=== PATIENT | female | born 1970 | race Caucasian/White ===

== ENCOUNTER 2017-01-18 23:30 | Outpatient (CLI) ==
[2017-01-19 03:16] VITALS: BMI 22.1
== END 2017-01-18 23:31 | disposition critical access hospital (66) ==
LOC: AMBL 23:30
PROVIDERS: ATTEND Internal Medicine Geriatric Medicine
DX: S09.90XA Unspecified injury of head, initial encounter (principal); F10.129 Alcohol abuse with intoxication, unspecified; W22.8XXA Striking against or struck by other objects, initial encounter

== ENCOUNTER 2017-01-18 23:40 | Inpatient (IN) ==
[2017-01-18] MEDS ORDERED: SODIUM CHLORIDE 1,000 ML IV STA (23:47)
[2017-01-18] MEDS ORDERED: ZOFRAN 4 MG/2 ML IVP STA (23:52)
[2017-01-19 00:07] LABS: BASOPHILS # (AUTO) 0.1 K/uL (0-0.2); EOSINOPHILS # (AUTO) 0.2 K/ul (0.0-0.7); EOSINOPHILS % (AUTO) 2.3 % (0.0-7.0); HEMATOCRIT 40.3 % (37.0-47.0); HEMOGLOBIN 13.6 g/dl (12.0-16.0); IMMATURE GRANULOCYTE % (AUTO) 0.3 % (0.0-5.0); LYMPHOCYTES % (AUTO) 28.2 (10.0-50.0); MEAN CORPUSCULAR HEMOGLOBIN 35.9 pg (27.0-31.0); MEAN CORPUSCULAR HGB CONC 33.7 (31.8-35.4); MEAN CORPUSCULAR VOLUME 106.3 fl (81.0-99.0); MONOCYTES # (AUTO) 0.4 K/uL (0.4-2.0); MONOCYTES % (AUTO) 5.3 (0-10); NEUTROPHILS # (AUTO) 4.4 K/ul (2.0-6.9); NEUTROPHILS % (AUTO) 62.9; PLATELET COUNT 292 10^3/uL (140-440); RED BLOOD COUNT 3.79 10^6/ul (4.20-5.40); WHITE BLOOD COUNT 7.01 K/ul (4.6-10.2)
[2017-01-19] MEDS ORDERED: URO-JET MUCOUSMEMB STA (00:16)
[2017-01-19 00:28] LABS: ACETAMINOPHEN 28 ug/ml (10-30); ALANINE AMINOTRANSFERASE 28 U/L (12-78); ALBUMIN 4.2 g/dL (3.4-5.0); ALBUMIN/GLOBULIN RATIO 1.24; ALKALINE PHOSPHATASE 86 U/L (42-98); ANION GAP 15.7; ASPARTATE AMINO TRANSFERASE 28 U/L (15-37); BILIRUBIN,TOTAL 0.19 mg/dL (0.00-1.20); BLOOD UREA NITROGEN 10 mg/dL (7-18); CALCIUM 9.2 mg/dL (8.2-10.2); CARBON DIOXIDE 16 mmol/L (21-32); CHLORIDE 116 mmol/L (98-107); CREATININE 0.84 mg/dL (0.60-1.30); GLUCOSE 139 mg/dL (70-110); POTASSIUM 3.7 mmol/L (3.5-5.10); SALICYLATE < 5.0 mg/dL (2.8-20.0); SODIUM 144 mmol/L (136-145); TOTAL PROTEIN 7.6 g/dL (6.4-8.2)
[2017-01-19 00:38] LABS: URINE PREGNANCY INTERNAL QC INTERNAL QC VALID
[2017-01-19] MEDS ORDERED: TORADOL IVP STA (00:39)
[2017-01-19 00:41] LABS: ADD URINE MICROSCOPIC YES; BILIRUBIN,URINE Negative (NEGATIVE); KETONES,URINE Negative (NEGATIVE); LEUKOCYTE ESTERASE ,URINE Negative (NEGATIVE); NITRITE,URINE Negative (NEGATIVE); PH,URINE 5.5 (5-9); PROTEIN,URINE 2+ (NEGATIVE); URINE, BLOOD Trace-intact (NEGATIVE)
[2017-01-19 00:45] LABS: COCAIN SCREEN,URINE NEGATIVE (NEGATIVE)
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
[2017-01-19] MEDS ORDERED: GEODON IM STA ×2 (00:55→01:37)
[2017-01-19] MEDS ORDERED: THIAMINE IVP STA (00:56)
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
[2017-01-19] MEDS ORDERED: ATIVAN IVP STA (01:13)
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
[2017-01-19] MEDS ORDERED: ZOFRAN 4 MG/2 ML IVP PRN (02:09)
[2017-01-19] MEDS ORDERED: DUONEB NEB PRN (02:09)
[2017-01-19] MEDS ORDERED: TYLENOL PO PRN (02:17)
[2017-01-19] MEDS ORDERED: D5%-NS-KCL 20 MEQ/L IV SOL 1,000 ML IV SCH (02:30)
[2017-01-19] MEDS ORDERED: [UNRECOGNIZED DRUG - OTHER] IV SCH (02:30)
[2017-01-19] MEDS ORDERED: THIAMINE IV SCH (02:30)
[2017-01-19 03:16] VITALS: BMI 22.1
[2017-01-19 05:11] VITALS: BP 97/63
[2017-01-19] MEDS: ATIVAN IVP PRN ×2 (06:34→10:15)
[2017-01-19 07:24] LABS: BASOPHILS # (AUTO) 0.1 K/uL (0-0.2); BASOPHILS % (AUTO) 1.7 % (0.0-3.0); EOSINOPHILS # (AUTO) 0.1 K/ul (0.0-0.7); EOSINOPHILS % (AUTO) 2.3 % (0.0-7.0); HEMATOCRIT 35.3 % (37.0-47.0); HEMOGLOBIN 11.6 g/dl (12.0-16.0); IMMATURE GRANULOCYTE % (AUTO) 0.3 % (0.0-5.0); LYMPHOCYTES # (AUTO) 1.2 K/uL (0.60-3.4); LYMPHOCYTES % (AUTO) 39.6 (10.0-50.0); MEAN CORPUSCULAR HEMOGLOBIN 36.3 pg (27.0-31.0); MEAN CORPUSCULAR HGB CONC 32.9 (31.8-35.4); MEAN CORPUSCULAR VOLUME 110.3 fl (81.0-99.0); MONOCYTES # (AUTO) 0.3 K/uL (0.4-2.0); MONOCYTES % (AUTO) 10.6 (0-10); NEUTROPHILS # (AUTO) 1.4 K/ul (2.0-6.9); NEUTROPHILS % (AUTO) 45.5; PLATELET COUNT 166 10^3/uL (140-440); WHITE BLOOD COUNT 3.03 K/ul (4.6-10.2)
[2017-01-19 07:40] LABS: ANISOCYTOSIS 1+ (NOT PRESENT)
[2017-01-19 07:45] LABS: ALBUMIN 3.5 g/dL (3.4-5.0); ALBUMIN/GLOBULIN RATIO 1.17; ANION GAP 16.2; BILIRUBIN,TOTAL 0.21 mg/dL (0.00-1.20); BUN/CREATININE RATIO 8.41; CALCIUM 8.2 mg/dL (8.2-10.2); CREATININE 1.07 mg/dL (0.60-1.30); POTASSIUM 4.2 mmol/L (3.5-5.10); TOTAL PROTEIN 6.5 g/dL (6.4-8.2)
[2017-01-19] MEDS ORDERED: LOVENOX SUBCUT SCH (09:00)
[2017-01-19 10:01] VITALS: TEMP 99
--- NOTE | 2017-01-19 10:36 | DI ---
Exam: Four x-rays of the left knee. Comparison: None available. Reason for exam: Left knee pain. FINDINGS: No acute fracture or dislocation. The joint spaces are well maintained. No large joint effusion or unexplained calcific soft tissue densities. Impression: No acute fracture or dislocation in the left knee.
[2017-01-19] MEDS ORDERED: ATIVAN PO STA (12:35)
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
== END 2017-01-19 14:30 | disposition home or self-care (01) | DRG 605 ==
LOC: ED 23:40 → SCU 01-19 02:10
PROVIDERS: ADMIT General Practice; ATTEND General Practice
DX: S00.83XA Contusion of other part of head, initial encounter (principal); F10.959 Alcohol use, unspecified with alcohol-induced psychotic disorder, unspecified; S09.90XA Unspecified injury of head, initial encounter; F11.90 Opioid use, unspecified, uncomplicated; F19.920 Other psychoactive substance use, unspecified with intoxication, uncomplicated; Y90.8 Blood alcohol level of 240 mg/100 ml or more; F91.8 Other conduct disorders; M25.562 Pain in left knee; J45.909 Unspecified asthma, uncomplicated; F41.9 Anxiety disorder, unspecified; H53.8 Other visual disturbances; Z63.8 Other specified problems related to primary support group; W22.8XXA Striking against or struck by other objects, initial encounter; Y92.89 Other specified places as the place of occurrence of the external cause
CPT/HCPCS: 36415; 80053; 80306; 80307; 81001; 81025; 85008; 85025; 87081; 93005; 93010; 94640; 96372; 96374; 96375; 99235; 99285